=== PATIENT | female | born 2000 | race Caucasian/White ===

== ENCOUNTER 2019-01-02 03:41 | Emergency (ER) | payer MEDICAID ==
[~2019-01-02] VITALS: Ht 170.2 cm; Wt 84.8 kg
--- NOTE | 2019-01-02 04:00 | NUR ---
Pt. ambulated into ED w/ c/o indigestion/heartburn after waking up a few hours ago,
[2019-01-02] MEDS ORDERED: ONDANSETRON ODT 4 MG TAB.RAPDIS ONE (04:24)
[2019-01-02] MEDS ORDERED: DICYCLOMINE HCL LIQ 10 MG/5 ML UDC PO ONE (04:30)
[2019-01-02] MEDS ORDERED: MAG HYDROX/AL HYDROX/SIMETH 30 ML LIQUID UDC PO ONE (04:30)
[2019-01-02] MEDS ORDERED: LIDOCAINE VISCUS 2% 15 ML UDC MM ONE (04:30)
[2019-01-02] MEDS ORDERED: ONDANSETRON ODT 4 MG TAB.RAPDIS SL ONE (04:30)
--- NOTE | 2019-01-02 04:31 | NUR ---
Xray at bedside.
[2019-01-02] MEDS ORDERED: DICYCLOMINE HCL LIQ 10 MG/5 ML UDC ONE (04:43)
[2019-01-02] MEDS ORDERED: LIDOCAINE VISCUS 2% 15 ML UDC ONE (04:43)
[2019-01-02] MEDS ORDERED: MAG HYDROX/AL HYDROX/SIMETH 30 ML LIQUID UDC ONE (04:44)
--- NOTE | 2019-01-02 05:09 | NUR ---
Patient discharged to home in stable conditon. Written and verbal after care instructions given. Patient verbalizes understanding of instructions. Pt. d/c w/ prescription per MD order, d/c papers signed, all belongings w/ pt., ID band removed, ambulated off unit w/ steady gait accompanied by male sterilisation technician, KYLIE
== END 2019-01-02 05:12 | disposition home or self-care (01) ==
LOC: ER 03:41
DX: R12 Heartburn (principal); R05 Cough; R11.10 Vomiting, unspecified; R19.7 Diarrhea, unspecified
CPT/HCPCS: 71045; A4663; Q0162